=== PATIENT | female | born 1940 | race Caucasian/White ===

== ENCOUNTER 2017-08-12 10:32 | Inpatient (IN) ==
[2017-08-12] MEDS ORDERED: ACETAMINOPHEN 325 MG TABLET PO PRN (10:38)
[2017-08-12] MEDS ORDERED: DOCUSATE SODIUM 100 MG CAPSULE PO PRN (10:38)
[2017-08-12] MEDS ORDERED: GLUCAGON 1 MG VIAL IM PRN (10:38)
[2017-08-12] MEDS ORDERED: DEXTROSE 50% 25 GM/50 ML VIAL IV PRN (10:38)
[2017-08-12] MEDS ORDERED: BENZONATATE 100 MG CAPSULE PO PRN (10:43)
[2017-08-12 12:47] LABS: Basophils % 0.3 % (0.0-0.8); Eosinophils # 0.1 10*3/uL (0.0-0.87); Eosinophils % 0.4 % (0.00-10.9); Hematocrit 37.5 VOL% (35.7-47.0); Hemoglobin 12.5 GM/DL (12.0-16.0); Immature Granulocytes % 0.5 %; Immature Granulocytes Absolute 0.06 #; Lymphocytes % 8.7 % (21.3-54.2); Mean Corpuscular HGB Conc 33.3 GM/DL (32-36); Mean Corpuscular Hemoglobin 31 PG (27-34); Mean Corpuscular Volume 92.1 FL (87-102); Mean Platelet Volume 10.3 FL (9.6-12.0); Monocytes % 8.6 % (1.7-12.7); Neutrophils # 9.1 10*3/uL (1.4-7.4); Neutrophils % 81.5 % (38.7-73.9); Platelet Count 270 T/CUMM (130-400); Red Blood Count 4.07 MC/CUMM (3.8-5.5); Red Cell Distribution Width 13.3 % (9.3-17.3); White Blood Count 11.1 T/CUMM (4-12)
[2017-08-12 13:14] LABS: Albumin 3.9 G/DL (3.4-5.0); Bilirubin,Total 0.6 MG/DL (0.2-1.0); Calcium 9.3 MG/DL (8.5-10.1); Magnesium 2.3 MG/DL (1.8-2.4); Osmolality,Calculated 283.5 MOS/KG (273-304); Potassium 4.3 MMOL/L (3.5-5.1); Thyroid Stimulating Hormone 1.91 uIU/ml (0.358-3.74); Total Protein 7.3 G/DL (6.4-8.3)
[2017-08-12] MEDS: INSULIN LISPRO 100 UNIT/ML SUBCUT SCH ×3 (14:33→21:51)
[2017-08-12 16:24] LABS: Apearance,Urine CLEAR (Clear); Bilirubin,Urine Negative (Negative); Blood, Urine Negative (Negative); Glucose,Urine (UA) Negative (Negative); Hyaline Casts,Urine 2 /LPF (0-3); Ketones,Urine Negative (Negative); Mucus,Urine Occasional /LPF (Occasional); Nitrite,Urine Negative (Negative); Protein,Urine Negative; Squamous Epithelial Cell,Urine Occasional /HPF (0-10); Urine Color Colorless (Yellow); Urine Specific Gravity 1.005 (1.001-1.035); Urine Urobilinogen < 2.0 EU/DL (0.2-1.0); WBC,Urine <1 /HPF (0-6)
[2017-08-12] MEDS: methylPREDNISolone SOD SUC 40 MG/1 ML VIAL IV SCH (17:04)
[2017-08-12] MEDS: CARVEDILOL 6.25 MG TABLET PO SCH (17:05)
[2017-08-12] MEDS: GLIMEPIRIDE 4 MG TABLET PO SCH (17:05)
[2017-08-12] MEDS: DRONEDARONE 400 MG TABLET PO SCH (17:05)
[2017-08-12] MEDS: cefTAZidime 500 MG in SYRINGE 1 EACH IV SCH (17:15)
[2017-08-12] MEDS: LEVOFLOXACIN INJ 250 MG in PREMIX 1 EACH IV SCH (17:21)
[2017-08-12] MEDS: MONTELUKAST 10 MG TABLET PO SCH (21:48)
[2017-08-12] MEDS: SACUBITRIL/VALSARTAN 49-51 MG TABLET PO SCH (21:48)
[2017-08-12] MEDS: INSULIN NPH 100 UNIT/ML SUBCUT SCH (21:53)
[2017-08-12] MEDS: PANTOPRAZOLE 40 MG TABLET PO SCH (21:53)
[2017-08-13] MEDS: cefTAZidime 500 MG in SYRINGE 1 EACH IV SCH ×3 (01:09→18:01)
[2017-08-13] MEDS: methylPREDNISolone SOD SUC 40 MG/1 ML VIAL IV SCH ×2 (01:10→13:08)
[2017-08-13 05:10] LABS: Basophils % 0.2 % (0.0-0.8); Hematocrit 33.5 VOL% (35.7-47.0); Hemoglobin 11.3 GM/DL (12.0-16.0); Immature Granulocytes % 0.3 %; Immature Granulocytes Absolute 0.02 #; Lymphocytes # 0.7 10*3/uL (1.4-4.0); Lymphocytes % 11.4 % (21.3-54.2); Mean Corpuscular HGB Conc 33.7 GM/DL (32-36); Mean Corpuscular Hemoglobin 30 PG (27-34); Mean Corpuscular Volume 89.8 FL (87-102); Mean Platelet Volume 10.9 FL (9.6-12.0); Monocytes # 0.2 10*3/uL (0.11-0.8); Monocytes % 2.7 % (1.7-12.7); Neutrophils # 5.4 10*3/uL (1.4-7.4); Neutrophils % 85.4 % (38.7-73.9); Platelet Count 235 T/CUMM (130-400); Red Blood Count 3.73 MC/CUMM (3.8-5.5); Red Cell Distribution Width 13.2 % (9.3-17.3); White Blood Count 6.3 T/CUMM (4-12)
[2017-08-13 05:42] LABS: Calcium 8.7 MG/DL (8.5-10.1); Osmolality,Calculated 293.8 MOS/KG (273-304); Potassium 4.8 MMOL/L (3.5-5.1)
[2017-08-13] MEDS: INSULIN LISPRO 100 UNIT/ML SUBCUT SCH ×4 (09:03→20:51)
[2017-08-13] MEDS: INSULIN NPH 100 UNIT/ML SUBCUT SCH ×2 (09:03→16:48)
[2017-08-13] MEDS: ASPIRIN EC 81 MG TABLET PO SCH (09:04)
[2017-08-13] MEDS: DRONEDARONE 400 MG TABLET PO SCH ×2 (09:04→16:49)
[2017-08-13] MEDS: GLIMEPIRIDE 4 MG TABLET PO SCH ×2 (09:04→16:49)
[2017-08-13] MEDS: amLODIPine 5 MG TABLET PO SCH (09:04)
[2017-08-13] MEDS: PANTOPRAZOLE 40 MG TABLET PO SCH ×2 (09:04→20:59)
[2017-08-13] MEDS: CLOPIDOGREL 75 MG TABLET PO SCH (09:04)
[2017-08-13] MEDS: SACUBITRIL/VALSARTAN 49-51 MG TABLET PO SCH ×2 (09:04→20:51)
[2017-08-13] MEDS: FUROSEMIDE 40 MG TABLET PO SCH (09:04)
[2017-08-13] MEDS: CARVEDILOL 6.25 MG TABLET PO SCH ×2 (09:05→16:49)
[2017-08-13] MEDS: MONTELUKAST 10 MG TABLET PO SCH ×2 (09:05→20:51)
[2017-08-13] MEDS ORDERED: IPRATROPIUM 500 MCG/2.5 ML NEB RESP TX PRN (10:10)
[2017-08-13 10:21] LABS: % Iron Saturation 11.2 % (18-50)
[2017-08-13 10:44] LABS: Folate 12.4 NG/ML (5.4-24.0)
[2017-08-13] MEDS: IPRATROPIUM 500 MCG/2.5 ML NEB RESP TX SCH (11:00)
[2017-08-13] MEDS: DORNASE ALFA 2.5 MG/2.5 ML VIAL RESP TX SCH (11:00)
[2017-08-13] MEDS: LEVOFLOXACIN INJ 250 MG in PREMIX 1 EACH IV SCH (16:49)
[2017-08-14] MEDS: DORNASE ALFA 2.5 MG/2.5 ML VIAL RESP TX SCH ×2 (00:56→08:20)
[2017-08-14] MEDS: IPRATROPIUM 500 MCG/2.5 ML NEB RESP TX SCH ×2 (01:05→08:20)
[2017-08-14] MEDS: methylPREDNISolone SOD SUC 40 MG/1 ML VIAL IV SCH ×2 (01:45→12:18)
[2017-08-14] MEDS: cefTAZidime 500 MG in SYRINGE 1 EACH IV SCH ×2 (01:45→10:54)
[2017-08-14 04:33] LABS: Basophils % 0.1 % (0.0-0.8); Hematocrit 32.4 VOL% (35.7-47.0); Hemoglobin 10.9 GM/DL (12.0-16.0); Immature Granulocytes % 0.7 %; Immature Granulocytes Absolute 0.07 #; Lymphocytes # 1.3 10*3/uL (1.4-4.0); Lymphocytes % 13.1 % (21.3-54.2); Mean Corpuscular HGB Conc 33.6 GM/DL (32-36); Mean Corpuscular Hemoglobin 30 PG (27-34); Mean Corpuscular Volume 89.3 FL (87-102); Mean Platelet Volume 10.8 FL (9.6-12.0); Monocytes # 0.6 10*3/uL (0.11-0.8); Monocytes % 5.9 % (1.7-12.7); Neutrophils # 7.9 10*3/uL (1.4-7.4); Neutrophils % 80.2 % (38.7-73.9); Platelet Count 246 T/CUMM (130-400); Red Blood Count 3.63 MC/CUMM (3.8-5.5); Red Cell Distribution Width 13.3 % (9.3-17.3); White Blood Count 9.9 T/CUMM (4-12)
[2017-08-14 05:23] LABS: Calcium 8.5 MG/DL (8.5-10.1); Potassium 4.3 MMOL/L (3.5-5.1)
[2017-08-14] MEDS: INSULIN LISPRO 100 UNIT/ML SUBCUT SCH ×2 (08:54→10:52)
[2017-08-14] MEDS: ASPIRIN EC 81 MG TABLET PO SCH (08:56)
[2017-08-14] MEDS: MONTELUKAST 10 MG TABLET PO SCH (08:56)
[2017-08-14] MEDS: PANTOPRAZOLE 40 MG TABLET PO SCH (08:56)
[2017-08-14] MEDS: INSULIN NPH 100 UNIT/ML SUBCUT SCH (08:56)
[2017-08-14] MEDS: DRONEDARONE 400 MG TABLET PO SCH (08:56)
[2017-08-14] MEDS: CLOPIDOGREL 75 MG TABLET PO SCH (08:57)
[2017-08-14] MEDS: SACUBITRIL/VALSARTAN 49-51 MG TABLET PO SCH (08:57)
[2017-08-14] MEDS: amLODIPine 5 MG TABLET PO SCH (08:57)
[2017-08-14] MEDS: GLIMEPIRIDE 4 MG TABLET PO SCH (08:57)
[2017-08-14] MEDS: CARVEDILOL 6.25 MG TABLET PO SCH (08:57)
[2017-08-14] MEDS: FUROSEMIDE 40 MG TABLET PO SCH (08:57)
[2017-08-14] MEDS ORDERED: ROSUVASTATIN 10 MG TABLET PO SCH (09:00)
[2017-08-14] MEDS ORDERED: FERROUS SULFATE 325 MG TABLET PO SCH (11:00)
[2017-08-14 11:44] VITALS: BP 123/52
[2017-08-14 16:11] LABS: Procalcitonin, S 0.11 ng/mL (<=0.15)
== END 2017-08-14 14:09 | disposition home or self-care (01) | DRG 203 ==
LOC: N.ADMINP 10:54 → N.3E 11:46
PROVIDERS: ADMIT Internal Medicine Pulmonary Disease; ATTEND Internal Medicine Pulmonary Disease

== ENCOUNTER 2020-11-05 12:19 | Inpatient (IN) ==
[2020-11-05] MEDS ORDERED: SODIUM CHLORIDE 0.9% 1,000 ML IV STA (13:15)
[2020-11-05 13:28] LABS: Basophils % 0.1 % (0.0-0.8); Eosinophils % 0.1 % (0.00-10.9); Hematocrit 34.5 VOL% (35.7-47.0); Hemoglobin 11.4 GM/DL (12.0-16.0); Immature Granulocytes % 0.8 %; Immature Granulocytes Absolute 0.12 #; Lymphocytes % 6.4 % (21.3-54.2); Mean Corpuscular Volume 88.7 FL (87-102); Mean Platelet Volume 9.7 FL (9.6-12.0); Neutrophils % 85.6 % (38.7-73.9); Platelet Count 284 T/CUMM (130-400); Red Blood Count 3.89 MC/CUMM (3.8-5.5); White Blood Count 15.2 T/CUMM (4-12)
[2020-11-05 13:55] LABS: Bilirubin,Urine Negative (Negative); Blood, Urine Negative (Negative); Glucose,Urine (UA) Negative (Negative); Ketones,Urine Negative (Negative); Mucus,Urine Occasional /LPF (Occasional); Nitrite,Urine Negative (Negative); Protein,Urine 30 MG/DL; RBC,Urine 2 /HPF (0-4); Squamous Epithelial Cell,Urine Occasional /HPF (0-10); Urine Appearance CLEAR (Clear); Urine Color Yellow (Yellow); Urine Specific Gravity 1.019 (1.001-1.035); Urine Urobilinogen < 2.0 EU/DL (0.2-1.0); WBC,Urine 34 /HPF (0-6)
[2020-11-05] MEDS ORDERED: cefTRIAXone 1,000 MG in SODIUM CHLORIDE 0.9% 100 ML IV STA (14:00)
[2020-11-05 14:03] LABS: Albumin 2.8 G/DL (3.4-5.0); Bilirubin,Total 0.9 MG/DL (0.2-1.0); Calcium 8.7 MG/DL (8.5-10.1); Osmolality,Calculated 275.5 MOS/KG (273-304); Potassium 4.4 MMOL/L (3.5-5.1); Total Protein 6.6 G/DL (6.4-8.3)
[2020-11-05 14:08] LABS: Ferritin 177.1 ng/ml (8-252)
[2020-11-05] MEDS ORDERED: GLUCAGON 1 MG VIAL IM PRN (15:50)
[2020-11-05] MEDS ORDERED: DEXTROSE 50% 25 GM/50 ML VIAL IV PRN (15:50)
[2020-11-05] MEDS ORDERED: ONDANSETRON 4 MG/2 ML VIAL IV PRN (15:50)
[2020-11-05] MEDS ORDERED: DOCUSATE SODIUM 100 MG CAPSULE PO PRN (15:50)
[2020-11-05] MEDS ORDERED: FLUTICASONE 50 MCG NASAL SPRAY 16 GM BOTTLE BOTH NARES PRN (15:58)
[2020-11-05] MEDS ORDERED: predniSONE 10 MG TABLET PO SCH (16:00)
[2020-11-05 17:50] LABS: PT Patient Result 74.6 SECS (9.8-11.9)
[2020-11-05] MEDS: INSULIN LISPRO 100 UNIT/ML SUBCUT SCH ×2 (17:54→21:10)
[2020-11-05] MEDS: carvediloL 12.5 MG TABLET PO SCH (17:55)
[2020-11-05 17:56] LABS: INR 7.8
[2020-11-05] MEDS ORDERED: LEVOFLOXACIN INJ 500 MG in PREMIX 1 EACH IV ONE (18:00)
[2020-11-05] MEDS: ALBUTEROL/IPRATROPIUM 3 ML NEB RESP TX SCH ×2 (19:50→23:48)
[2020-11-05] MEDS ORDERED: ENOXAPARIN 30 MG/0.3 ML SYRINGE SUBCUT SCH (21:00)
[2020-11-05] MEDS: ROSUVASTATIN 10 MG TABLET PO SCH (22:31)
[2020-11-05] MEDS: ACETAMINOPHEN 325 MG TABLET PO PRN (22:32)
[2020-11-06] MEDS: ACETAMINOPHEN 325 MG TABLET PO PRN (02:24)
[2020-11-06] MEDS ORDERED: IBUPROFEN 400 MG TABLET PO ONE (04:19)
[2020-11-06 05:52] LABS: Basophils % 0.2 % (0.0-0.8); Eosinophils % 0.1 % (0.00-10.9); Hemoglobin 11.1 GM/DL (12.0-16.0); Immature Granulocytes % 0.7 %; Lymphocytes # 0.5 10*3/uL (1.4-4.0); Lymphocytes % 3.8 % (21.3-54.2); Mean Corpuscular HGB Conc 32.6 GM/DL (32-36); Mean Corpuscular Volume 89.2 FL (87-102); Monocytes % 6.6 % (1.7-12.7); Neutrophils % 88.6 % (38.7-73.9); Platelet Count 269 T/CUMM (130-400); Red Blood Count 3.81 MC/CUMM (3.8-5.5); Red Cell Distribution Width 14.1 % (9.3-17.3); White Blood Count 14.2 T/CUMM (4-12)
[2020-11-06 06:06] LABS: Ferritin 177.3 ng/ml (8-252)
[2020-11-06 06:14] LABS: PT Patient Result 85.7 SECS (9.8-11.9)
[2020-11-06 06:19] LABS: Band Neutrophils 2 % (0-10); Hypochromasia 1+; Lymphocytes 4 % (20-55); Microcytosis Slight; Platelet Estimate Normal; Segmented Neutrophils 89 % (50-85); Total Cells Counted 100
[2020-11-06 06:21] LABS: Albumin 2.6 G/DL (3.4-5.0); Bilirubin,Total 1.3 MG/DL (0.2-1.0); Calcium 8.4 MG/DL (8.5-10.1); Potassium 4.2 MMOL/L (3.5-5.1); Risk Ratio 4.73; Thyroid Stimulating Hormone 4.72 uIU/ml (0.358-3.74); Total Protein 6.2 G/DL (6.4-8.3); VLDL CHOLESTEROL 34.4 MG/DL
[2020-11-06] MEDS: ALBUTEROL/IPRATROPIUM 3 ML NEB RESP TX SCH (07:15)
[2020-11-06] MEDS ORDERED: PHYTONADIONE 10 MG/1 ML AMP SUBCUT ONE (09:00)
[2020-11-06] MEDS ORDERED: FUROSEMIDE 80 MG TABLET PO SCH (09:00)
[2020-11-06] MEDS: predniSONE 10 MG TABLET PO SCH (09:46)
[2020-11-06] MEDS: ISOSORBIDE MONONITRATE 30 MG TABLET PO SCH (09:46)
[2020-11-06] MEDS: FUROSEMIDE 40 MG TABLET PO SCH (09:46)
[2020-11-06] MEDS: amLODIPine 10 MG TABLET PO SCH (09:46)
[2020-11-06] MEDS: PANTOPRAZOLE 40 MG TABLET PO SCH (09:47)
[2020-11-06] MEDS: carvediloL 12.5 MG TABLET PO SCH ×2 (09:47→18:04)
[2020-11-06] MEDS: INSULIN LISPRO 100 UNIT/ML SUBCUT SCH ×4 (09:48→21:28)
[2020-11-06] MEDS: AMIODARONE 200 MG TABLET PO SCH (09:59)
[2020-11-06] MEDS: CLOPIDOGREL 75 MG TABLET PO SCH (09:59)
[2020-11-06] MEDS: INSULIN NPH 100 UNIT/ML SUBCUT SCH (10:34)
[2020-11-06] MEDS: IPRATROPIUM 500 MCG/2.5 ML NEB RESP TX SCH ×2 (13:35→18:58)
[2020-11-06] MEDS: LEVOFLOXACIN INJ 250 MG in PREMIX 1 EACH IV SCH (20:45)
[2020-11-06] MEDS: ROSUVASTATIN 10 MG TABLET PO SCH (20:46)
[2020-11-07] MEDS: IPRATROPIUM 500 MCG/2.5 ML NEB RESP TX SCH ×4 (00:06→19:12)
[2020-11-07 06:55] LABS: Basophils % 0.1 % (0.0-0.8); Eosinophils % 0.1 % (0.00-10.9); Hematocrit 33.5 VOL% (35.7-47.0); Hemoglobin 10.7 GM/DL (12.0-16.0); Immature Granulocytes Absolute 0.09 #; Lymphocytes % 10.8 % (21.3-54.2); Mean Corpuscular HGB Conc 31.9 GM/DL (32-36); Mean Corpuscular Volume 92.3 FL (87-102); Mean Platelet Volume 10.2 FL (9.6-12.0); Monocytes % 8.9 % (1.7-12.7); Neutrophils % 79.1 % (38.7-73.9); Platelet Count 295 T/CUMM (130-400); Red Blood Count 3.63 MC/CUMM (3.8-5.5); Red Cell Distribution Width 14.1 % (9.3-17.3); White Blood Count 9.4 T/CUMM (4-12)
[2020-11-07 07:07] LABS: PT Patient Result 30.4 SECS (9.8-11.9)
[2020-11-07 07:14] LABS: Calcium 8.9 MG/DL (8.5-10.1); Potassium 4.2 MMOL/L (3.5-5.1)
[2020-11-07] MEDS ORDERED: LEVALBUTEROL 1.25 MG/3 ML NEB RESP TX PRN (08:54)
[2020-11-07] MEDS ORDERED: CLOPIDOGREL 75 MG TABLET PO SCH (09:00)
[2020-11-07] MEDS ORDERED: WARFARIN 2.5 MG TABLET PO SCH (09:00)
[2020-11-07] MEDS: INSULIN LISPRO 100 UNIT/ML SUBCUT SCH ×4 (10:04→20:40)
[2020-11-07] MEDS: carvediloL 12.5 MG TABLET PO SCH ×2 (10:05→16:05)
[2020-11-07] MEDS: INSULIN NPH 100 UNIT/ML SUBCUT SCH (10:05)
[2020-11-07] MEDS: CLOPIDOGREL 75 MG TABLET PO SCH (10:05)
[2020-11-07] MEDS: ISOSORBIDE MONONITRATE 30 MG TABLET PO SCH (10:05)
[2020-11-07] MEDS: amLODIPine 10 MG TABLET PO SCH (10:06)
[2020-11-07] MEDS: AMIODARONE 200 MG TABLET PO SCH (10:06)
[2020-11-07] MEDS: PANTOPRAZOLE 40 MG TABLET PO SCH (10:06)
[2020-11-07] MEDS: predniSONE 10 MG TABLET PO SCH (10:07)
[2020-11-07] MEDS: FUROSEMIDE 40 MG TABLET PO SCH ×2 (10:09→16:21)
[2020-11-07] MEDS ORDERED: FUROSEMIDE 40 MG/4 ML VIAL IV ONE (11:00)
[2020-11-07] MEDS: GLIMEPIRIDE 4 MG TABLET PO SCH (16:05)
[2020-11-07] MEDS: LEVOFLOXACIN INJ 250 MG in PREMIX 1 EACH IV SCH (20:39)
[2020-11-07] MEDS: MUPIROCIN 2% OINT 22 GM TUBE TOP SCH (20:40)
[2020-11-07] MEDS: ROSUVASTATIN 10 MG TABLET PO SCH (20:40)
[2020-11-08] MEDS: IPRATROPIUM 500 MCG/2.5 ML NEB RESP TX SCH ×2 (00:15→07:25)
[2020-11-08 05:42] LABS: Basophils % 0.2 % (0.0-0.8); Eosinophils # 0.1 10*3/uL (0.0-0.87); Eosinophils % 1.1 % (0.00-10.9); Hematocrit 31.7 VOL% (35.7-47.0); Hemoglobin 10.3 GM/DL (12.0-16.0); Immature Granulocytes % 2.1 %; Immature Granulocytes Absolute 0.19 #; Lymphocytes # 1.6 10*3/uL (1.4-4.0); Lymphocytes % 17.4 % (21.3-54.2); Mean Corpuscular HGB Conc 32.5 GM/DL (32-36); Mean Corpuscular Volume 89.3 FL (87-102); Mean Platelet Volume 9.9 FL (9.6-12.0); Monocytes % 11.1 % (1.7-12.7); Neutrophils % 68.1 % (38.7-73.9); Platelet Count 283 T/CUMM (130-400); Red Blood Count 3.55 MC/CUMM (3.8-5.5); Red Cell Distribution Width 13.9 % (9.3-17.3); White Blood Count 9.2 T/CUMM (4-12)
[2020-11-08 05:46] LABS: INR 1.4; PT Patient Result 14.7 SECS (9.8-11.9)
[2020-11-08 06:02] LABS: Calcium 8.8 MG/DL (8.5-10.1); Potassium 4.5 MMOL/L (3.5-5.1)
[2020-11-08] MEDS ORDERED: WARFARIN 5 MG TABLET PO SCH (09:00)
[2020-11-08] MEDS: carvediloL 12.5 MG TABLET PO SCH (09:19)
[2020-11-08] MEDS: GLIMEPIRIDE 4 MG TABLET PO SCH (09:19)
[2020-11-08] MEDS: amLODIPine 10 MG TABLET PO SCH (09:19)
[2020-11-08] MEDS: PANTOPRAZOLE 40 MG TABLET PO SCH (09:19)
[2020-11-08] MEDS: predniSONE 10 MG TABLET PO SCH (09:19)
[2020-11-08] MEDS: CLOPIDOGREL 75 MG TABLET PO SCH (09:19)
[2020-11-08] MEDS: AMIODARONE 200 MG TABLET PO SCH (09:19)
[2020-11-08] MEDS: ISOSORBIDE MONONITRATE 30 MG TABLET PO SCH (09:19)
[2020-11-08] MEDS: INSULIN NPH 100 UNIT/ML SUBCUT SCH (09:20)
[2020-11-08] MEDS: MUPIROCIN 2% OINT 22 GM TUBE TOP SCH (09:20)
[2020-11-08] MEDS: INSULIN LISPRO 100 UNIT/ML SUBCUT SCH ×2 (09:20→12:18)
[2020-11-08] MEDS: FUROSEMIDE 40 MG TABLET PO SCH (09:21)
[2020-11-08] MEDS ORDERED: FUROSEMIDE 40 MG/4 ML VIAL IV ONE (09:30)
[2020-11-08 12:04] VITALS: BP 159/55
== END 2020-11-08 13:37 | disposition home or self-care (01) | DRG 193 ==
LOC: EDUNIT# → EDBD → N.ED 12:19 → N.EDINP 15:50
PROVIDERS: ADMIT Internal Medicine; ATTEND Internal Medicine

== ENCOUNTER 2022-02-11 20:55 | Observation (INO) ==
[2022-02-11 21:44] LABS: Hematocrit 37.1 VOL% (35.7-47.0); Immature Granulocytes % 0.6 %; Immature Granulocytes Absolute 0.04 #; Lymphocytes # 1.6 10*3/uL (1.4-4.0); Lymphocytes % 23.2 % (21.3-54.2); Mean Corpuscular HGB Conc 32.3 GM/DL (32-36); Mean Corpuscular Volume 89.2 FL (87-102); Mean Platelet Volume 10.1 FL (9.6-12.0); Monocytes # 0.5 10*3/uL (0.11-0.8); Monocytes % 7.4 % (1.7-12.7); Neutrophils % 68.8 % (38.7-73.9); Platelet Count 223 T/CUMM (130-400); Red Blood Count 4.16 MC/CUMM (3.8-5.5); Red Cell Distribution Width 13.8 % (9.3-17.3); White Blood Count 7.1 T/CUMM (4-12)
[2022-02-11 22:20] LABS: INR 2.7; PT Patient Result 27.5 SECS (10.5-12.0)
[2022-02-11 22:22] LABS: Albumin 3.7 G/DL (3.4-5.0); Bilirubin,Total 0.5 MG/DL (0.20-1.00); Calcium 8.9 MG/DL (8.5-10.1); Osmolality,Calculated 283.8 MOS/KG (273-304); Potassium 4.6 MMOL/L (3.5-5.1); Total Protein 6.6 G/DL (6.4-8.2)
[2022-02-12] MEDS ORDERED: SODIUM CHLORIDE 0.9% 1,000 ML IV STA (01:03)
[2022-02-12 01:27] LABS: Bilirubin,Urine Negative (Negative); Blood, Urine Trace mg/dL (Negative); Glucose,Urine (UA) Negative (Negative); Ketones,Urine Negative (Negative); Nitrite,Urine Negative (Negative); Protein,Urine Negative (Negative); Urine Appearance Clear (Clear); Urine Color Yellow (Yellow); Urine Specific Gravity 1.015 (1.001-1.035); Urine Urobilinogen 0.2 eU/dL (<2.0)
[2022-02-12] MEDS ORDERED: GLUCAGON 1 MG VIAL IM PRN (02:41)
[2022-02-12] MEDS ORDERED: ACETAMINOPHEN 325 MG TABLET PO PRN (02:50)
[2022-02-12] MEDS ORDERED: ONDANSETRON 4 MG/2 ML VIAL IV PRN (02:50)
[2022-02-12] MEDS ORDERED: SODIUM CHLORIDE 0.9% 1,000 ML IV SCH (03:00)
[2022-02-12] MEDS ORDERED: MECLIZINE 25 MG TABLET PO PRN (03:05)
[2022-02-12] MEDS ORDERED: DEXTROSE 10% 250 ML BAG IV PRN (03:06)
[2022-02-12 03:43] LABS: Basophils % 0.1 % (0.0-0.8); Hematocrit 36.8 VOL% (35.7-47.0); Immature Granulocytes % 0.3 %; Immature Granulocytes Absolute 0.02 #; Lymphocytes # 1.7 10*3/uL (1.4-4.0); Lymphocytes % 24.5 % (21.3-54.2); Mean Corpuscular HGB Conc 32.6 GM/DL (32-36); Mean Corpuscular Volume 88.9 FL (87-102); Mean Platelet Volume 9.9 FL (9.6-12.0); Monocytes # 0.6 10*3/uL (0.11-0.8); Monocytes % 8.9 % (1.7-12.7); Neutrophils % 66.2 % (38.7-73.9); Platelet Count 210 T/CUMM (130-400); Red Blood Count 4.14 MC/CUMM (3.8-5.5); Red Cell Distribution Width 13.6 % (9.3-17.3)
[2022-02-12 04:20] LABS: Calcium 8.7 MG/DL (8.5-10.1); Osmolality,Calculated 285.5 MOS/KG (273-304); Potassium 4.4 MMOL/L (3.5-5.1); Risk Ratio 2.91; Thyroid Stimulating Hormone 4.45 uIU/ml (0.358-3.74); VLDL Cholesterol 21.8 MG/DL
[2022-02-12 07:17] LABS: INR 2.6; PT Patient Result 26.6 SECS (10.5-12.0)
[2022-02-12] MEDS: INSULIN REGULAR 100 UNIT/ML SUBCUT SCH ×4 (07:29→20:35)
[2022-02-12] MEDS: PANTOPRAZOLE 40 MG TABLET PO SCH (08:45)
[2022-02-12] MEDS: DOCUSATE SODIUM 100 MG CAPSULE PO SCH ×2 (08:45→20:34)
[2022-02-12] MEDS ORDERED: FLUTICASONE 50 MCG NASAL SPRAY 16 GM BOTTLE BOTH NARES PRN (11:05)
[2022-02-12] MEDS ORDERED: DRONEDARONE 400 MG TABLET PO SCH (11:30)
[2022-02-12] MEDS: carvediloL 12.5 MG TABLET PO SCH ×2 (11:42→20:34)
[2022-02-12] MEDS: ASCORBIC ACID 500 MG TABLET PO SCH (12:17)
[2022-02-12] MEDS ORDERED: WARFARIN 5 MG TABLET PO SCH (18:00)
[2022-02-12] MEDS: DRONEDARONE 400 MG TABLET PO SCH (18:26)
[2022-02-12] MEDS: ISOSORBIDE MONONITRATE 30 MG TABLET PO SCH (20:34)
[2022-02-12] MEDS ORDERED: ROSUVASTATIN 10 MG TABLET PO SCH (21:00)
[2022-02-13 04:09] LABS: Osmolality,Calculated 285.4 MOS/KG (273-304)
[2022-02-13 04:36] LABS: INR 2.4; PT Patient Result 25.3 SECS (10.5-12.0); Partial Thromboplastin Time 36.2 SECS (23.8-32.1)
[2022-02-13 08:09] VITALS: BP 172/56
[2022-02-13] MEDS ORDERED: amLODIPine 5 MG TABLET PO SCH (09:00)
[2022-02-13] MEDS ORDERED: CLOPIDOGREL 75 MG TABLET PO SCH (09:00)
[2022-02-13] MEDS: INSULIN REGULAR 100 UNIT/ML SUBCUT SCH ×2 (09:47→15:15)
[2022-02-13] MEDS: DRONEDARONE 400 MG TABLET PO SCH (09:48)
[2022-02-13] MEDS: ASCORBIC ACID 500 MG TABLET PO SCH (09:48)
[2022-02-13] MEDS: ISOSORBIDE MONONITRATE 30 MG TABLET PO SCH (09:48)
[2022-02-13] MEDS: carvediloL 12.5 MG TABLET PO SCH (09:48)
[2022-02-13] MEDS: DOCUSATE SODIUM 100 MG CAPSULE PO SCH (09:49)
[2022-02-13] MEDS: PANTOPRAZOLE 40 MG TABLET PO SCH (09:49)
== END 2022-02-13 15:15 | disposition home or self-care (01) ==
LOC: N.EDINP 20:55 → N.ED 20:55 → N.EDINP 02-12 15:53 → N.TELEN 02-12 15:54
PROVIDERS: ADMIT Internal Medicine; ATTEND Internal Medicine